=== PATIENT | female | born 1985 | race Caucasian/White ===

== ENCOUNTER → 2017-07-17 | Outpatient (CLI) | payer OTHER ==
[2017-07-20 22:32] LABS: CHLAMYDIA TRACH RNA*** NOT DETECTED (NOT DETECTED); GC (NEIS GONORRHOEAE)RNA** NOT DETECTED (NOT DETECTED)
== END | disposition home or self-care (01) ==
LOC: C.LABSPEC 14:11
PROVIDERS: ATTEND Obstetrics & Gynecology
DX: Z34.01 Encounter for supervision of normal first pregnancy, first trimester (principal)

== ENCOUNTER → 2017-07-17 | Outpatient (CLI) | payer OTHER | END | disposition home or self-care (01) | LOC: C.PAPS 14:57 | PROVIDERS: ATTEND Obstetrics & Gynecology | DX: Z34.01 Encounter for supervision of normal first pregnancy, first trimester (principal) ==

== ENCOUNTER → 2018-01-08 | Outpatient (CLI) | payer OTHER | END | disposition home or self-care (01) | LOC: C.LABSPEC 14:12 | PROVIDERS: ATTEND Obstetrics & Gynecology | DX: Z34.03 Encounter for supervision of normal first pregnancy, third trimester (principal) ==

== ENCOUNTER 2018-02-10 06:50 | Inpatient (IN) | payer OTHER ==
[~2018-02-10] VITALS: Ht 162.6 cm; Wt 72.6 kg
[2018-02-10] MEDS: LACTATED RINGER'S 1000ML 1,000 ML IV SCH ×3 (02:04→16:33)
[2018-02-10] MEDS ORDERED: LACTATED RINGER'S 1000ML 1,000 ML IV PRN (07:42)
[2018-02-10 07:50] VITALS: Ht 162.6 cm; Wt 72.6 kg
[2018-02-10 08:14] LABS: HEMOGLOBIN 10.7 g/dL (12.0-16.0); MEAN CELL VOLUME 86.7 fL (80-100); MEAN CORPUSCULAR HGB CONC 33.4 g/dl (32-36); MEAN PLATELET VOLUME 10.9 fL (7.4-10.4); PLATELET COUNT 194 K/uL (130-400); RED CELL DISTRIBUTION WIDTH CV 14.5 % (11.5-14.5); WHITE BLOOD COUNT 6.73 K/uL (4.8-10.8)
[2018-02-10] MEDS ORDERED: PRENTAB26 PO (08:55)
[2018-02-10] MEDS ORDERED: MISOPROSTOLTAB 50 MCG TAB PO ONE (15:30)
[2018-02-11] MEDS ORDERED: LACTATED RINGER'S 1000ML 500 ML IV PRN (01:43)
[2018-02-11] MEDS ORDERED: OXYTOCIN 30 UNITS/500ML NSS IV PRN ×2 (01:45→11:00)
[2018-02-11] MEDS: LACTATED RINGER'S 1000ML 1,000 ML IV SCH ×4 (07:40→23:36)
[2018-02-11] MEDS ORDERED: BUTORPHANOL TARTRATE 1 MG/ML VIAL ONE (10:19)
[2018-02-11] MEDS ORDERED: DIPHTHERIA/TETANUS/PERTUSSIS 0.5 ML SYR/VIAL IM. ONE (11:00)
[2018-02-11] MEDS ORDERED: HYDROCORTISONE ACETATE 25 MG SUPP PR PRN (11:00)
[2018-02-11] MEDS ORDERED: LANOLIN OINT EXT PRN (11:00)
[2018-02-11] MEDS ORDERED: SUPERCREAM 0.870 % 15GM JAR EXT PRN (11:00)
[2018-02-11] MEDS ORDERED: BENZOCAINE 20% AER SPR 82.5 GM CAN EXT PRN (11:00)
[2018-02-11] MEDS ORDERED: ACETAMINOPHEN 325 MG TAB PO PRN (11:00)
[2018-02-11] MEDS ORDERED: ACETAMINOPHEN/CODEINE 300/30MG TAB PO PRN ×2 (11:00)
[2018-02-11] MEDS ORDERED: OXYCODONE/ACETAMINOPHEN 5-325 TAB PO PRN (11:00)
--- NOTE | 2018-02-11 12:17 | DELIVERY SUMMARY ---
DATE OF DELIVERY: 02/11/2018 Patient is a 33-year-old 1, para 1, general health is good. No problems. Due date 02/05/2018. Blood type A positive, rubella immune. Vaginal beta strep negative. Was admitted with ruptured membranes on 02/10/2018; gómez rupture of membranes. Cervix was about 1.5 cm firm. The patient had a plan; requested no intervention. We monitored for a while. Contractions were mild and sporadic. We then gave her Cytotec 50 mcg. She responded well to this. Contractions picked up. She started to have regular pattern and we let her labor after the Cytotec and let be started to become sporadic again and she was started on IV Pitocin. At the time she was started on IV Pitocin, she was really about 3-4 cm. With the IV Pitocin, she developed good quality contractions, regular. She basically went to full dilatation, pushed out a live infant via MOISES position over an intact perineum. She had a tight nuchal cord which had to be clamped and cut prior to delivery. Then cord blood was taken. Carolina's estimation of 1 and 5 minute Apgars were 7 and 9 respectively. Placenta was removed intact. There was a left-sided sulcus laceration which was difficult to identify, bleeding heavily. I finally identified with a right angle retractor, identified the apex, sutured with a running 2-0 Vicryl out to the hymenal ring. I then did suture the rectovaginal septum in 2 layers. I did a deep layer, which also bolstered the sphincter capsule. Then, I did a layer over this to approximate the vaginal mucosa out to beyond the hymenal ring. I did about 3 horizontal sutures to approximate the perineal body, a deep suture to approximate the bulbocavernosus muscle, and then a running subcuticular suture to approximate the perineal skin edges. Following this, vag exam including rectovaginal examination revealed good approximation of the tissues. You could feel that the sulcus tear had been completely repaired and there were no stitches through the rectum. Sponges were removed. The patient tolerated the procedure well and left the delivery room in good condition. ELLIOT
[2018-02-11] MEDS: IBUPROFEN 600 MG TAB PO PRN ×2 (14:40→19:42)
[2018-02-11 16:17] LABS: HEMATOCRIT 28.2 % (37-47); HEMOGLOBIN 9.1 g/dL (12.0-16.0)
[2018-02-11] MEDS ORDERED: NURSING VERBAL MED ORDER ONE (16:30)
[2018-02-11] MEDS: DOCUSATE SODIUM 100 MG CAP PO SCH (20:23)
[2018-02-11 21:11] LABS: HEMATOCRIT 23.8 % (37-47); HEMOGLOBIN 7.8 g/dL (12.0-16.0)
[2018-02-11 21:20] VITALS: BP 109/71; PULSE 83; TEMP 36.8
[2018-02-11 23:40] VITALS: BP 110/68; PULSE 65; TEMP 36.6; O2SAT 100
[2018-02-12 03:25] VITALS: BP 111/71; PULSE 83; TEMP 36.5; O2SAT 100
[2018-02-12] MEDS: IBUPROFEN 600 MG TAB PO PRN ×5 (03:30→21:39)
[2018-02-12] MEDS: LACTATED RINGER'S 1000ML 1,000 ML IV SCH (04:42)
[2018-02-12 06:38] LABS: HEMATOCRIT 20.6 % (37-47); HEMOGLOBIN 6.9 g/dL (12.0-16.0)
[2018-02-12] MEDS: PRENATAL VITAMIN TAB PO SCH (07:42)
[2018-02-12] MEDS: DOCUSATE SODIUM 100 MG CAP PO SCH ×2 (07:42→20:40)
[2018-02-12] MEDS: FERROUS SULFATE 325 MG TAB PO SCH (07:44)
[2018-02-12 08:00] VITALS: BP 126/73; PULSE 68; TEMP 36.6; O2SAT 99
--- NOTE | 2018-02-12 08:48 | Progress Note ---
Subjective Feb 12, 2018. Subjective conversation w/ patient Ambulation: ambulating normally Voiding: no voiding problems Passing Gas: Yes Diet Tolerance: Regular Diet Lochia: Small Feeding Type: Breast Feeding Review of Systems Constitutional: + fever Objective Vital Signs Date Time Temp Pulse Resp B/P (MAP) Pulse Ox O2 Delivery O2 Flow Rate FiO2 02/12/18 03:25 36.5 83 18 111/71 (84) 100 Room Air 02/11/18 23:40 36.6 65 16 110/68 (82) 100 Room Air 02/11/18 23:40 100 Room Air 02/11/18 21:20 36.8 83 16 109/71 (84) Room Air 02/11/18 21:20 Room Air Physical Exam General Appearance: WELL-APPEARING Abdomen: non tender Fundus: Firm, Non-Tender Extremities: no pedal edema, no calf tenderness Laboratory Results Last 24 Hours Test 02/11/18 16:04 02/11/18 20:55 02/12/18 05:58 Hemoglobin 9.1 g/dL 7.8 g/dL 6.9 g/dL Hematocrit 28.2 % 23.8 % 20.6 % Assessment and Plan Post- Day#: 1
[2018-02-12 12:45] VITALS: BP 116/71; PULSE 92; TEMP 36.8; O2SAT 97
[2018-02-12 16:12] LABS: HEMATOCRIT 22.9 % (37-47); HEMOGLOBIN 7.5 g/dL (12.0-16.0)
[2018-02-12] MEDS ORDERED: BISACODYL 5 MG TABEC PO SCH (20:00)
[2018-02-13 00:20] VITALS: BP 112/69; PULSE 77; TEMP 36.6; O2SAT 97
[2018-02-13] MEDS ORDERED: BISACODYL 10 MG SUPP PR PRN (07:00)
[2018-02-13 07:14] LABS: HEMATOCRIT 22.3 % (37-47); HEMOGLOBIN 7.3 g/dL (12.0-16.0)
--- NOTE | 2018-02-13 07:32 | OB/GYN Progress Note ---
[facility] Progress Note Date of Service Feb 13, 2018. Subjective conversation w/ patient, physical exam Ambulation: ambulating normally Voiding: no voiding problems Passing Gas: Yes Diet Tolerance: Regular Diet Review of Systems Constitutional: No fever, No chills, No sweats, No weight loss, No weakness, No fatigue, No problem reported Respiratory: No cough, No sputum, No wheezing, No shortness of breath, No dyspnea on exertion, No dyspnea at rest, No hemoptysis, No problem reported Cardiac: No chest pain, No orthopnea, No PND, No edema, No claudication, No palpitations, No problem reported Breast: No see HPI, No breast lump, No change in shape, No nipple discharge, No breast pain, No problem reported Abdomen: No pain, No nausea, No vomiting, No diarrhea, No constipation, No GI bleeding, No problem reported Female : No see HPI, No dysuria, No urinary frequency, No hematuria, No incontinence, No abnormal vaginal bleeding, No vaginal discharge, No problem reported Objective Vital Signs Date Time Temp Pulse Resp B/P (MAP) Pulse Ox O2 Delivery O2 Flow Rate FiO2 02/13/18 00:20 36.6 77 18 112/69 (83) 97 Room Air 02/13/18 00:20 97 Room Air 02/12/18 17:10 Room Air 02/12/18 12:45 36.8 92 20 116/71 (86) 97 Room Air 02/12/18 08:00 Room Air 02/12/18 08:00 36.6 68 20 126/73 (90) 99 Room Air Physical Exam General Appearance: WELL-APPEARING, WD/WN, NO APPARENT DISTRESS Respiratory/Chest: chest non-tender, lungs clear, normal breath sounds Cardiovascular: regular rate, rhythm, no edema, no gallop Abdomen: normal bowel sounds, non tender, soft Fundus: Firm Extremities: normal range of motion, non-tender, normal inspection Laboratory Results Last 24 Hours Test 02/12/18 16:04 02/13/18 06:57 Hemoglobin 7.5 g/dL 7.3 g/dL Hematocrit 22.9 % 22.3 % Assessment and Plan Post- Day Number: 2 Continue Routine Care: PPD #2 pt doing wel d/c home with instructions
[2018-02-13] MEDS ORDERED: MTR600X PO (07:34)
[2018-02-13] MEDS ORDERED: FRRS300 PO ×2 (07:34→09:14)
--- NOTE | 2018-02-13 07:35 | Discharge Instructions ---
Discharge Instructions Date of Service Feb 13, 2018. Admission Reason for Admission: Check Rupture Discharge Discharge Diagnosis / Problem: , anemia Discharge Goals Goal(s): Routine recovery after delivery Activity Recommendations Activity Limitations: as noted below ACTIVITY RECOMMENDATIONS: * Gradual return to full activity over the next 2-3 weeks. * No lifting - nothing heavier than baby over the next 2-3 weeks. * Do not engage in vigorous exercise, sexual activity or sports until cleared by your physician. * Do not drive or operate any motorized equipment until cleared by your physician. * You may shower/bathe daily. DIET: Resume Previous Diet If Breast-feeding: * Increase caloric intake by 500 calories, eat 3 well balanced meals, 2 high protein snacks a day and drink 6-8 8oz. glasses of fluid per day. BREAST CARE: If you are not breast feeding: * Wear a supportive bra 24 hours a day for one to two weeks. * Avoid stimulating your breasts and nipples as much as possible during the first few weeks after delivery. * When taking a shower, have the warm water hit your back, not breasts. * When your breasts feel full, apply ice packs. Usually three to four times a day helps ease the discomfort. * Take a mild pain medication (Tylenol / Motrin) when you are uncomfortable. If breast feeding: * Use breast milk to lubricate nipples. Lansinoh cream may be used for sore nipples. You do not need to remove cream prior to breast feeding. If using a different brand of cream, check the label for directions regarding removal of cream prior to nursing. * Wear a supportive bra. * If having problems with breasts or breast feeding, call a [facility] consultant or your health care provider. OVER THE COUNTER MEDICATION: * For discomfort or pain, you may use Acetaminophen (Tylenol), Ibuprofen (Advil ), or Naproxen (Aleve) following the package directions. * For constipation you may use Colace following the package directions. SPECIAL CARE INSTRUCTIONS: * Vaginal rest (no tampons, douching, intercourse) until after doctor 's visit. * control as discussed with doctor. * Verbalizes understanding of car seat law as reviewed with patient nursing. * Car Seat hand-out given and reviewed with patient by nursing. * Shaken baby information reviewed with patient by nursing. Call you doctor if: * Temperature greater than or equal to 100.4 degrees F or 38.0 degrees C. Take your temperature twice daily for a week. * Bleeding becomes heavier than the heaviest part of your period - saturating a sanitary pad within an hour. * Passing large clots. * Bleeding has a foul smelling odor. * Signs and symptoms of phlebitis: leg pain, warm, red or swollen area on leg. * "Baby Blues" lasting longer than two weeks. ++ If you have had a and incision has increased pain, redness, swelling, presence of any drainage, or if the incision starts to open up. If you have any questions or concerns, call your health care practitioner at [phone]. FOLLOW-UP VISIT: Please call the office at to schedule a 6 week examination. . Current Hospital Diet Patient's current hospital diet: Regular Diet Discharge Diet Recommended Diet: Regular Diet Pending Studies Studies pending at discharge: no Medical Emergencies . Who to Call and When: Medical Emergencies: If at any time you feel your situation is an emergency, please call 911 immediately. . Non-Emergent Contact Non-Emergency issues call your: Specialist . . "Provider Documentation" section prepared by Joaquim Govea. .
[2018-02-13 08:00] VITALS: O2SAT 97
[2018-02-13 08:28] VITALS: BP 103/64; PULSE 85; TEMP 36.9; O2SAT 99
[2018-02-13] MEDS: DOCUSATE SODIUM 100 MG CAP PO SCH (09:00)
[2018-02-13] MEDS: PRENATAL VITAMIN TAB PO SCH (09:01)
[2018-02-13] MEDS: FERROUS SULFATE 325 MG TAB PO SCH (09:01)
[2018-02-13] MEDS: IBUPROFEN 600 MG TAB PO PRN (09:03)
[2018-02-13 13:25] VITALS: BP_DIAS 64; PULSE 85; TEMP 36.9
== END 2018-02-13 13:25 | disposition home or self-care (01) | DRG 775 ==
LOC: C.OPB 06:50 → C.LD 06:53 → C.OPB 07:47 → C.LD 07:47 → C.OBG 02-11 20:05
PROVIDERS: ADMIT Obstetrics & Gynecology; ATTEND Obstetrics & Gynecology
PROC: 0KQM0ZZ Repair Perineum Muscle, Open Approach (ICD-10-PCS; principal; 2018-02-11)
PROC: 0DQR0ZZ Repair Anal Sphincter, Open Approach (ICD-10-PCS; principal; 2018-02-11)
PROC: 10E0XZZ Delivery of Products of Conception, External Approach (ICD-10-PCS; principal; 2018-02-11)
DX: O48.0 Post-term pregnancy (principal); O70.20 Third degree perineal laceration during delivery, unspecified; O70.1 Second degree perineal laceration during delivery; O42.02 Full-term premature rupture of membranes, onset of labor within 24 hours of rupture; O69.1XX0 Labor and delivery complicated by cord around neck, with compression, not applicable or unspecified; Z37.0 Single live birth; Z3A.40 40 weeks gestation of pregnancy